=== PATIENT | male | born 1965 | race Caucasian/White ===

== ENCOUNTER 2024-06-05 11:16 | Observation (INO) ==
[2024-06-05 12:34] LABS: ABS Basophils 0.1 10^3/uL (0.0-0.1); ABS Eosinophils 0.1 10^3/uL (0.0-0.5); ABS Lymphocytes 1.7 10^3/uL (1.0-4.8); ABS Monocytes 0.8 10^3/uL (0.0-1.1); ABS Neutrophils 3.5 10^3/uL (1.5-7.6); ABS Nucleated RBC 0.01 10^3/ul; Eosinophil % 1.5 %; Hematocrit 41.9 % (38-53); Hemoglobin 14.1 g/dL (13.2-16.3); Mean Corpuscular Hemoglobin 30.8 pg (27-33); Mean Corpuscular Hgb Conc 33.6 g/dL (31-36); Mean Corpuscular Volume 91.5 fL (80-97); Mean Platelet Volume 9.1 fL (7.5-11.2); Nucleated Red Blood Cells % 0.1 %/100WBC (0.0-0.8); Platelet Count 239 10^3/uL (150-450); Red Blood Count 4.58 10^6/uL (4.06-5.63); Red Cell Distribution Width 14.9 % (12-17); White Blood Count 6.1 10^3/uL (3.6-10.2)
[2024-06-05 12:50] LABS: INR 1.06 (0.85-1.14)
[2024-06-05 13:00] LABS: High Sens Troponin Baseline 7 pg/mL (<20)
[2024-06-05 13:09] LABS: ALT 26 U/L (7-52); AST 26 U/L (13-39); Albumin 4.1 g/dL (3.2-5.2); Albumin/Globulin Ratio 1.6 (1-3); Alkaline Phosphatase 78 U/L (35-149); Anion Gap 8 mmol/L (2-16); Blood Urea Nitrogen 19 mg/dL (6-24); CO2 Carbon Dioxide 28 mmol/L (22-32); Calcium 8.8 mg/dL (8.6-10.3); Chloride 102 mmol/L (101-111); Creatine Kinase 279 U/L (10-223); Creatinine, Serum 0.65 mg/dL (0.67-1.17); Globulin 2.5 g/dL (2-4); Glucose 77 mg/dL (70-100); Magnesium 2.1 mg/dL (1.9-2.7); Potassium 4.1 mmol/L (3.5-5.0); Sodium 138 mmol/L (135-145); Total Bilirubin 0.9 mg/dL (0.2-1.0); Total Protein 6.6 g/dL (6.4-8.9); eGFR CKD-EPI 107.9 (>60)
[2024-06-05 13:22] LABS: TSH Ultra Thyroid Stim Horm 0.32 mcIU/mL (0.34-5.60)
[2024-06-05 14:10] LABS: High Sensitivity Troponin 1 Hr 7 pg/mL (<20)
[2024-06-05 14:38] LABS: Urine Appearance Clear; Urine Bilirubin Negative (Negative); Urine Blood Negative (Negative); Urine Color Light-Yellow; Urine Glucose Negative (Negative); Urine Ketones 1+ (Negative); Urine Nitrite Negative (Negative); Urine Protein Negative (Negative); Urine Specific Gravity 1.014 (1.002-1.030); Urine Urobilinogen Negative (Negative); Urine pH 5.5 (5.0-8.0)
[2024-06-05 14:55] LABS: Urine Benzodiazepine Screen None Detected (None Detect); Urine Cannabinoids Screen None Detected (None Detect); Urine Opiates Screen None Detected (None Detect)
[2024-06-05 17:11] LABS: Urine Buprenorphine Screen None Detected (None Detect); Urine Fentanyl Screen None Detected (None Detect); Urine Hydrocodone Screen None Detected (None Detect)
[2024-06-05 18:45] LABS: Alcohol, S < 13 mg/dL (<13)
[2024-06-05] MEDS ORDERED: Sulfur Hexaflouride MICROSPHR 25 MG VIAL IV PRN (21:19)
[2024-06-05 22:07] LABS: Folate > 20.00 ng/mL (5.90-24.80)
[2024-06-05 22:09] LABS: Vitamin B12 601 pg/mL (180-914)
[2024-06-06 16:07] VITALS: BP 122/67
== END 2024-06-06 16:07 | disposition home or self-care (01) ==
LOC: EDHOLD 11:16 → ED 11:16 → SUATTDRO 21:21 → ED 06-06 16:06 → EDHOLD 06-06 16:06
PROVIDERS: ADMIT Student in an Organized Health Care Education/Training Program; ATTEND Student in an Organized Health Care Education/Training Program